=== PATIENT | female | born 1940 | race Caucasian/White ===

== ENCOUNTER 2016-03-31 10:35 | Outpatient (CLI) | payer MEDICARE | END 2016-03-31 10:36 | disposition home or self-care (01) | DX: M81.0 Age-related osteoporosis without current pathological fracture (principal) ==

== ENCOUNTER 2016-06-19 12:09 | Outpatient (CLI) | payer MEDICARE | END 2016-06-19 12:10 | disposition home or self-care (01) | DX: Z53.9 Procedure and treatment not carried out, unspecified reason (principal) ==

== ENCOUNTER 2016-07-05 14:36 | Outpatient (CLI) | payer MEDICARE | END 2016-07-05 14:37 | disposition home or self-care (01) | DX: Z12.31 Encounter for screening mammogram for malignant neoplasm of breast (principal) ==

== ENCOUNTER 2016-08-11 11:50 | Outpatient (CLI) | payer MEDICARE ==
--- NOTE | 2016-08-11 13:05 | XRAY Report ---
THREE-VIEW RIGHT WRIST: 08/11/2016 CLINICAL INDICATION: Bony growth right dorsal wrist. FINDINGS: AP, lateral, oblique views of the right wrist demonstrate mild osteoarthritis. There is n o evidence of acute fracture or dislocation. No abnormal calcification or ossification is appreciate d in the dorsal soft tissues. Minimal chondrocalcinosis is noted. IMPRESSION: OSTEOARTHRITIS, WITH CHONDROCALCINOSIS. NO ABNORMAL SOFT TISSUE CALCIFICATION OR OSSIFI CATION IS APPRECIATED DORSALLY. JOB #: [id number] EXT JOB #:[id number]
== END 2016-08-11 11:51 | disposition home or self-care (01) ==
LOC: DI 11:50
PROVIDERS: ATTEND Registered Nurse
DX: M19.031 Primary osteoarthritis, right wrist (principal); M11.231 Other chondrocalcinosis, right wrist

== ENCOUNTER 2016-08-31 13:30 | Outpatient (CLI) | payer MEDICARE ==
--- NOTE | 2016-09-01 09:23 | XRAY Report ---
LEFT HIP AND PELVIS: 08/31/2016 CLINICAL INDICATION: Left hip pain. FINDINGS: Frontal view of the hips and pelvis and frogleg lateral view of the left hip demonstrate n o evidence of fracture or dislocation. Moderate osteoarthritis is present. Surgical clips are noted in the left groin. IMPRESSION: MODERATE OSTEOARTHRITIS. JOB #: [id number] EXT JOB #:[id number]
== END 2016-08-31 13:31 | disposition home or self-care (01) ==
LOC: DI.S 13:30
PROVIDERS: ATTEND Nurse Practitioner Family
DX: M16.12 Unilateral primary osteoarthritis, left hip (principal)

== ENCOUNTER 2017-05-02 08:00 | Outpatient (CLI) | payer MEDICARE | END 2017-05-02 08:01 | disposition home or self-care (01) | LOC: LAB.R 08:00 | PROVIDERS: ATTEND Nurse Practitioner | DX: R19.7 Diarrhea, unspecified (principal); R10.30 Lower abdominal pain, unspecified; R63.4 Abnormal weight loss | CPT/HCPCS: 87493 ==

== ENCOUNTER 2017-08-29 11:38 | Outpatient (CLI) | payer MEDICARE ==
--- NOTE | 2017-08-29 15:13 | XRAY Report ---
Procedure Date: 08/29/2017 Accession Number: [id number] / [id number] Procedure: XRS - Thoracic Spine 2 View CPT Code: FULL RESULT: EXAM: Thoracic Spine 2 View DATE: 08/29/2017 12:06 PM CLINICAL HISTORY: INCREASING THORACIC BACK PX COMPARISON: 08/16/2015 TECHNIQUE: 2 views. FINDINGS: Alignment: Anterior kyphosis. Bones: Compression fractures are stable. No new fracture is present. Disks: Degenerative disc disease. Soft Tissues: Normal. The visualized lungs and cardiomediastinal silhouette are normal. IMPRESSION: Stable compression fractures and degenerative changes. No significant interval change from 08/16/2015. RADIA
== END 2017-08-29 11:39 | disposition home or self-care (01) ==
LOC: DI.S 11:38
PROVIDERS: ATTEND Registered Nurse
DX: M51.34 Other intervertebral disc degeneration, thoracic region (principal)
CPT/HCPCS: 72070

== ENCOUNTER 2017-08-29 11:39 | Outpatient (CLI) | payer MEDICARE ==
--- NOTE | 2017-08-30 10:21 | Mammography Report ---
Procedure Date: 08/29/2017 Accession Number: [id number] / [id number] Procedure: MGS - Screening Mammo Dig Bilat CPT Code: FULL RESULT: EXAM: Screening Mammo Dig Bilat DATE: 08/29/2017 12:07 PM CLINICAL HISTORY: 76-year-old with personal history of left breast cancer status post lumpectomy for screening TECHNIQUE: Bilateral CC and MLO views were obtained. COMPARISON: 07/05/2016, 09/18/2014, 09/08/2013, 09/17/2012, 09/07/2011, 08/22/2010, 07/28/2009 FINDINGS: The breasts demonstrate heterogeneously dense fibroglandular parenchyma bilaterally. Postoperative changes in the left breast are stable. Coarse and punctate, typically benign calcifications are present. No suspicious masses, clustered microcalcifications, or regions of architectural distortion are identified. IMPRESSION: Benign findings RECOMMENDATION: Routine annual screening unless otherwise clinically indicated. BIRADS CATEGORY 2: Benign findings STANDARD QUALIFYING STATEMENTS: 1. This examination was reviewed with the aid of Computer-Aided Detection (CAD). 2. A negative or benign imaging report should not delay biopsy if clinically suspicious findings are present. Consider surgical consultation if warrented. More than 5% of cancers are not identified by imaging. 3. Dense breasts may obscure an underlying neoplasm.
== END 2017-08-29 11:40 | disposition home or self-care (01) ==
LOC: DI.S 11:39
PROVIDERS: ATTEND Registered Nurse
DX: Z12.31 Encounter for screening mammogram for malignant neoplasm of breast (principal); Z85.3 Personal history of malignant neoplasm of breast
CPT/HCPCS: 77067

== ENCOUNTER 2017-11-22 11:40 | Outpatient (CLI) | payer MEDICARE ==
[2017-11-22] MEDS ORDERED: IOPAMIDOL-300 100 ML VIAL ONE (12:10)
[2017-11-22] MEDS ORDERED: IOPAMIDOL-300 50 ML VIAL ONE (12:10)
[2017-11-22 13:15] LABS: CREATININE 0.8 mg/dL (0.4-1.0)
[2017-11-22] MEDS ORDERED: IOPAMIDOL-300 100 ML VIAL IVP ONE (13:36)
[2017-11-22] MEDS ORDERED: IOPAMIDOL-300 50 ML VIAL PO ONE (13:36)
--- NOTE | 2017-11-22 14:10 | CT Report ---
Reason: ABDOMINAL MASS Procedure Date: 11/22/2017 Accession Number: [id number] / [id number] Procedure: CT - Abdomen/Pelvis W/ CPT Code: FULL RESULT: EXAM: CT ABDOMEN AND PELVIS EXAM DATE: 11/22/2017 01:38 PM. CLINICAL HISTORY: Abdominal mass. COMPARISONS: Thoracic spine without contrast 07/29/2014 1:43 PM. TECHNIQUE: Routine helical CT imaging was performed through the abdomen and pelvis. IV contrast: 100 mL of Isovue-300. Enteric contrast: Yes. Reconstructions: Coronal and sagittal. In accordance with CT protocol optimization, one or more of the following dose reduction techniques were utilized for this exam: automated exposure control, adjustment of mA and/or KV based on patient size, or use of iterative reconstructive technique. FINDINGS: Lung Bases: Partially visualized 8 mm linear nodularity is seen in the left upper lobe (image 1, series 3). Smaller 7 mm similar focus is seen in the lingular region (image 10, series 3). 6 mm subsolid density is suggested in the right lower lobe (image 2, series 3). Liver: Small 1.3 cm cyst is seen in the right hepatic lobe. No masses otherwise. Gallbladder/Bile Ducts: Unremarkable. Spleen: Normal. Pancreas: Normal. Adrenal Glands: Normal. Kidneys: The left kidney demonstrates a tiny subcentimeter low-density focus (image 34, series 3), technically too small to further characterize and indeterminant but probable tiny cyst. There is no nephrolithiasis or hydronephrosis. Peritoneal Cavity/Bowel: There is minimal predominantly sigmoid diverticulosis without evidence of diverticulitis. There is no obstruction or ileus. No free fluid or free air. The appendix is not visualized, however, no inflammatory changes are seen in the right lower quadrant region. Pelvic Organs: A small fat-containing left inguinal hernia is suggested. There are postoperative changes in the left inguinal region. Small calcification is seen in the uterus likely related to degenerated fibroid. Otherwise, the bladder and visualized pelvic organs are within normal limits. Vasculature: No aneurysms or other significant abnormality. Bones: Compression fracture deformities at T11 and T12 are similar to prior study, chronic. Other: None. IMPRESSION: 1. No acute intra-abdominal abnormality demonstrated. No intra-abdominal mass or adenopathy identified. 2. Small fat-containing left inguinal hernia and postoperative changes in the left inguinal region. 3. Partially visualized linear nodular changes in the lung bases measuring up to 8 mm, nonspecific. Correlation with standard chest CT could be considered for further evaluation. RADIA
== END 2017-11-22 11:41 | disposition home or self-care (01) ==
LOC: DI 11:40
PROVIDERS: ATTEND Nurse Practitioner Family
DX: R19.00 Intra-abdominal and pelvic swelling, mass and lump, unspecified site (principal); K40.90 Unilateral inguinal hernia, without obstruction or gangrene, not specified as recurrent; R91.1 Solitary pulmonary nodule
CPT/HCPCS: 36415; 74177; 82565; Q9967

== ENCOUNTER 2017-11-28 12:44 | Outpatient (CLI) | payer MEDICARE ==
[2017-11-28] MEDS ORDERED: IOPAMIDOL-300 100 ML VIAL ONE (12:52)
[2017-11-28] MEDS ORDERED: IOPAMIDOL-300 100 ML VIAL IVP ONE (13:39)
--- NOTE | 2017-11-28 15:48 | CT Report ---
Reason: LUNG NODULES ON ABD CT Procedure Date: 11/28/2017 Accession Number: [id number] / [id number] Procedure: CT - Chest W/ CPT Code: FULL RESULT: EXAM: CT CHEST EXAM DATE: 11/28/2017 01:12 PM. CLINICAL HISTORY: LUNG NODULES ON ABD CT. COMPARISONS: Abdomen pelvis CT [address] 5 5042. TECHNIQUE: Routine helical CT imaging was performed through the chest. IV contrast: None. Reconstructions: Coronal and sagittal. In accordance with CT protocol optimization, one or more of the following dose reduction techniques were utilized for this exam: automated exposure control, adjustment of mA and/or KV based on patient size, or use of iterative reconstructive technique. FINDINGS: Lungs/Pleura: Left upper lobe solid pulmonary nodule 9 mm, essentially stable compared to recent abdomen pelvis CT. Series 4 image 36. 3 adjacent nodules measure up to 7 mm, outside the field of view on the prior CT. Image 35. There is bibasilar, lingular, and right middle lobe atelectasis. 6 mm ground glass nodule of the right lower lobe also essentially stable given differences in technique. Image 36. Mediastinum: No adenopathy or masses. The heart and great vessels are normal. Bones: Compression fractures of T8, T11, and T12 appear similar to prior thoracic spine CT of 07/29/2014 Visualized Abdomen: 1.3 cm hepatic cyst is a stable finding. IMPRESSION: Left solid pulmonary nodules measure up to [address] at 3-6 months, then subsequent management based on most suspicious nodule. Right groundglass pulmonary nodule measures 6 mm. This may be followed concurrently with the left nodules. RADIA
== END 2017-11-28 12:45 | disposition home or self-care (01) ==
LOC: DI 12:44
PROVIDERS: ATTEND Nurse Practitioner Family
DX: J98.4 Other disorders of lung (principal); R91.8 Other nonspecific abnormal finding of lung field
CPT/HCPCS: 71260; Q9967

== ENCOUNTER 2018-03-22 11:46 | Outpatient (CLI) | payer MEDICARE ==
--- NOTE | 2018-03-22 13:30 | CT Report ---
Reason: MULTIPLE NODULES OF LUNG Procedure Date: 03/22/2018 Accession Number: [id number] / [id number] Procedure: CT - Chest W/O CPT Code: FULL RESULT: EXAM: CT CHEST EXAM DATE: 03/22/2018 11:56 AM. CLINICAL HISTORY: MULTIPLE NODULES OF LUNG. For a follow-up COMPARISONS: 11/28/[address] TECHNIQUE: Routine helical CT imaging was performed through the chest. IV contrast: None. Reconstructions: Coronal and sagittal. In accordance with CT protocol optimization, one or more of the following dose reduction techniques were utilized for this exam: automated exposure control, adjustment of mA and/or KV based on patient size, or use of iterative reconstructive technique. FINDINGS: Lungs/Pleura: Nodules measured on series 4: 1. Image 33 a 9 x 7 mm axial by 9 mm vertical slightly spiculated left upper lobe nodule, previously 6 x 9 mm axial by 7 mm vertical. Small adjacent nodules previously seen not definitely appreciated today. 2. Image 36 a 7 x 6 mm axial by 5 mm vertical groundglass nodule peripheral right lower lobe is unchanged. No bronchial thickening, consolidation, or edema. Pulmonary vasculature is normal. No pericardial or pleural effusion. No pneumothorax. Mediastinum: Normal. No adenopathy or masses. The heart and great vessels are normal. Bones: Stable T8 greater than T11 greater than T12 compression fractures. Imaged upper Abdomen: Stable hepatic cyst series 3 image 59 Other: None. IMPRESSION: 1. Minimally spiculated left upper lobe nodule has increased slightly in size since 11/28/2017, currently measuring 9 x 7 x 9 mm, previously 9 x 6 x 7 mm. Given the slight increase in size and its slightly spiculated appearance further evaluation by PET imaging is suggested. 2. Right lung groundglass 7 x 6 x 5 mm nodule is stable. 3. No significant new findings. RADIA
== END 2018-03-22 11:47 | disposition home or self-care (01) ==
LOC: DI 11:46
PROVIDERS: ATTEND Registered Nurse
DX: R91.8 Other nonspecific abnormal finding of lung field (principal)
CPT/HCPCS: 71250

== ENCOUNTER 2018-07-09 09:16 | Outpatient (CLI) | payer MEDICARE ==
--- NOTE | 2018-07-09 13:47 | CT Report ---
Reason: OTHER NONSPECIFIC ABNORMAL FINDING OF LUNG FIELD Procedure Date: 07/09/2018 Accession Number: [id number] / [id number] Procedure: CT - CHEST WO CPT Code: FULL RESULT: EXAM: CT CHEST EXAM DATE: 07/09/2018 09:29 AM. CLINICAL HISTORY: Multiple pulmonary nodules. COMPARISONS: CHEST W/O 03/22/2018 11:47 AM. TECHNIQUE: Routine helical CT imaging was performed through the chest. IV contrast: None. Reconstructions: Coronal and sagittal. In accordance with CT protocol optimization, one or more of the following dose reduction techniques were utilized for this exam: automated exposure control, adjustment of mA and/or KV based on patient size, or use of iterative reconstructive technique. FINDINGS: Lungs/Pleura: The previously followed left upper lobe nodule has increased in size and now demonstrates clear spiculations with suggestion of satellite extension towards the fissure. Extension measures 0.6 x 0.6 cm and the nodule without its spicules measures 1.1 x 0.8 cm. Groundglass nodule in the right lower lobe now measures 1.1 x 0.9 cm, previously 0.9 x 0.9 cm on image 32 which is potentially unchanged given limitations of technique. A fissure-based 4 mm nodule along the right horizontal fissure on image 33 is stable. Mediastinum: There are mild calcifications of the aortic arch and there are mild to moderate calcifications of the left coronary artery systems. There is no pericardial effusion. By size criteria, there is no mediastinal or hilar lymphadenopathy. Bones: Unremarkable. Visualized Abdomen: A hepatic hypodensity is too small to characterize. Other: None. IMPRESSION: The interval change of the 1.1 cm left upper lobe nodule is suspicious for malignancy. Redemonstration of a groundglass nodule in the right lower lobe which is either minimally enlarged or stable in the short interval. Recommendation: Surgical consultation. RADIA
== END 2018-07-09 09:17 | disposition home or self-care (01) ==
LOC: DI 09:16
PROVIDERS: ATTEND Registered Nurse
DX: R91.8 Other nonspecific abnormal finding of lung field (principal)
CPT/HCPCS: 71250

== ENCOUNTER 2019-03-11 15:23 | Outpatient (CLI) | payer MEDICARE ==
--- NOTE | 2019-03-14 10:57 | XRAY Report ---
Reason: PLEURODYNIA Procedure Date: 03/11/2019 Accession Number: [id number] / [id number] Procedure: XR - Ribs w/PA Chest LT CPT Code: Final Report FULL RESULT: EXAM: LEFT RIB RADIOGRAPHY EXAM DATE: 03/11/2019 03:33 PM. CLINICAL HISTORY: PLEURODYNIA. COMPARISON: THORACIC SPINE 2 VIEW 08/29/2017 11:59 AM CHEST W/O 07/09/2018 9:26 AM. TECHNIQUE: 1 view of the chest and 2 views of the ribs. FINDINGS: Bones: Old left fifth and sixth rib fracture Lungs: Lung nodules seen on CT not well seen. Left basilar atelectasis Tenting of the left hemidiaphragm. No pneumothorax. No pleural effusions. Mediastinum: Heart and mediastinal contours are unremarkable. Other: Calcific tendinitis right shoulder IMPRESSION: 1. No acute fracture 2. Left basilar atelectasis RADIA
== END 2019-03-11 15:24 | disposition home or self-care (01) ==
LOC: DI 15:23
PROVIDERS: ATTEND Nurse Practitioner Family
DX: J98.11 Atelectasis (principal)

== ENCOUNTER 2019-05-01 12:45 | Outpatient (CLI) | payer MEDICARE ==
--- NOTE | 2019-05-02 09:24 | XRAY Report ---
Reason: PAIN IN RT SHLDR Procedure Date: 05/01/2019 Accession Number: [id number] / [id number] Procedure: XR - Ribs w/PA Chest LT CPT Code: Final Report FULL RESULT: EXAM: LEFT RIB RADIOGRAPHY EXAM DATE: 05/01/2019 12:45 PM. CLINICAL HISTORY: PAIN IN RT SHLDR. COMPARISON: RIBS W/PA CHEST LT 03/11/2019 3:27 PM CHEST W/O 07/09/2018 9:26 AM. TECHNIQUE: 1 view of the chest and 2 views of the ribs. FINDINGS: Bones: Proximal right humeral deformity with smooth contours. Bones appear osteopenic. Multiple chronic thoracic spine compression fractures. Lateral right seventh and ninth rib fractures. Lungs: Lingular lung nodule projects over the anterior left fifth rib. Stable left hemidiaphragm tenting. Trachea appears to bow to patient's left. Mediastinum: Heart and mediastinal contours are unremarkable. Other: None. IMPRESSION: 1. Diffuse osteopenia limits evaluation. 2. Lateral right seventh and ninth rib fractures versus superimposition artifact on oblique film. 3. Multiple known chronic thoracic spine compression fractures. 4. Proximal right humeral deformity with smooth contours may be related to remote fracture or erosive process. Consider right shoulder MRI or CT. 5. Consider chest CT to reassess previously demonstrated lung nodules, thoracic spine compression fractures, questionable right rib fractures and leftward tracheal deviation. RADIA
== END 2019-05-01 23:59 | disposition home or self-care (01) ==
LOC: DI 12:45
PROVIDERS: ATTEND Registered Nurse
DX: R07.89 Other chest pain (principal); M21.921 Unspecified acquired deformity of right upper arm; R91.8 Other nonspecific abnormal finding of lung field

== ENCOUNTER 2019-08-28 12:58 | Outpatient (CLI) | payer MEDICARE ==
--- NOTE | 2019-08-28 16:26 | MRI Report ---
PROCEDURE: Shoulder RT W/O INDICATIONS: RIGHT SHOULDER PAIN TECHNIQUE: Noncontrast oblique coronal T2 fast spin echo with fat saturation, oblique sagittal T1 spin echo and T2 fast spin echo with fat saturation, axial T1 spin echo and T2 fast spin echo with fat saturation t hrough the shoulder. COMPARISON: None. FINDINGS: Image quality: Motion degraded examination. Rotator cuff: Large full-thickness tear of the supraspinatus and infraspinatus tendons is present. The teres minor tendon appears intact. Subscapularis tendinopathy and thickening which not well visualized due to mot ion artifact. There is probable interstitial tearing. Severe atrophy of the supraspinatus and infrasp inatus muscles. Bones and bursae: Large Hill-Sachs fracture deformity. Moderate acromioclavicular joint degeneration. Glenohumeral joint degeneration also noted. The acromion demonstrates conventional anatomy, without an os acromiale. Small joint effusion Capsule and soft tissues: Labrum: Labrum not well seen due to motion artifact. There is blunting of the posterior labrum and il l-defined amorphous intrasubstance signal change along the anteroinferior segment. Technically, no fl uid signal intensity is seen within the substance. Long head biceps tendon grossly intact although some intrasubstance signal changes raise the possibil ity of tendinopathy Near complete obliteration of the subcoracoid fat. The coracohumeral ligament is not well seen and ma y be ruptured. IMPRESSION: Large full-thickness tear of the supraspinatus and infraspinatus tendons. Subscapularis tendinopathy and interstitial tearing. Atrophy of the supraspinatus and infraspinatus muscles Chronic large Hill-Sachs fracture deformity, with suspected chronic tear of the anteroinferior labrum as well as the posterior segment. Long head biceps tendinopathy Degenerative joint disease Small joint effusion Motion degraded examination Reviewed by: Chris Gallagher MD on 08/28/2019 4:24 PM PDT Approved by: Chris Gallagher MD on 08/28/2019 4:24 PM PDT Station ID: [id number]
== END 2019-08-28 12:59 | disposition home or self-care (01) ==
LOC: DI 12:58
PROVIDERS: ATTEND Registered Nurse
DX: M75.101 Unspecified rotator cuff tear or rupture of right shoulder, not specified as traumatic (principal); M19.011 Primary osteoarthritis, right shoulder; M25.411 Effusion, right shoulder; S42.291D Other displaced fracture of upper end of right humerus, subsequent encounter for fracture with routine healing

== ENCOUNTER 2021-06-10 09:23 | Outpatient (CLI) | payer MEDICARE ==
[2021-06-10 14:58] LABS: BASOPHILS # (AUTO) 0.1 10^3/uL (0.0-0.1); BASOPHILS % (AUTO) 1.4 %; EOSINOPHILS # (AUTO) 0.2 10^3/uL (0.0-0.7); EOSINOPHILS % (AUTO) 4.1 %; HCT - HEMATOCRIT 32.8 % (37.0-47.0); HGB - HEMOGLOBIN 10.8 g/dL (12.0-16.0); LYMPHOCYTES # (AUTO) 1.1 10^3/uL (1.5-3.5); LYMPHOCYTES % (AUTO) 23.3 %; MEAN CORPUSCULAR HEMOGLOBIN 33.9 pg (27.0-31.0); MEAN CORPUSCULAR HGB CONC 32.9 g/dL (32.0-36.0); MEAN CORPUSCULAR VOLUME 102.8 fL (81.0-99.0); MEAN PLATELET VOLUME 9.3 fL (7.9-10.8); MONOCYTES # (AUTO) 0.7 10^3/uL (0.0-1.0); MONOCYTES % (AUTO) 14.1 %; NEUTROPHILS # (AUTO) 2.8 10^3/uL (1.5-6.6); NEUTROPHILS % (AUTO) 56.9 %; PLT - PLATELET COUNT 330 10^3/uL (130-450); RED BLOOD COUNT 3.19 10^6/uL (4.20-5.40); RED CELL DISTRIBUTION WIDTH 11.9 % (12.0-15.0); WHITE BLOOD COUNT 4.9 x10^3/uL (4.8-10.8)
[2021-06-10 15:21] LABS: ALBUMIN 4.5 g/dL (3.2-5.5); ALBUMIN/GLOBULIN RATIO 1.7 (1.0-2.2); ALKALINE PHOSPHATASE 33 IU/L (42-121); ALT ALANINE AMINOTRANSFERASE 20 IU/L (10-60); AST ASPARTATE AMINOTRANSFERASE 29 IU/L (10-42); BILIRUBIN,TOTAL 0.9 mg/dL (0.2-1.0); BUN - BLOOD UREA NITROGEN 25 mg/dL (6-20); CALCIUM 9.4 mg/dL (8.5-10.3); CARBON DIOXIDE - CO2 26 mmol/L (21-32); CHLORIDE 96 mmol/L (101-111); CREATININE 1.3 mg/dL (0.4-1.0); GFR - MDRD 40 (>89); GLUCOSE 95 mg/dL (70-100); POTASSIUM 3.9 mmol/L (3.5-5.0); SODIUM 135 mmol/L (135-145); TOTAL PROTEIN 7.1 g/dL (6.7-8.2)
[2021-06-10 15:26] LABS: CRP - C-REACTIVE PROTEIN < 1.0 mg/dL (0-1.0)
== END 2021-06-10 09:24 | disposition home or self-care (01) ==
LOC: LAB.S 09:23
PROVIDERS: ATTEND Internal Medicine Rheumatology
DX: M05.9 Rheumatoid arthritis with rheumatoid factor, unspecified (principal); Z79.899 Other long term (current) drug therapy
CPT/HCPCS: 36415; 80053; 85025; 85651; 86140

== ENCOUNTER 2021-08-10 15:01 | Outpatient (CLI) | payer MEDICARE ==
--- NOTE | 2021-08-10 15:28 | CT Report ---
PROCEDURE: HEAD WO INDICATIONS: CLOSED INJURY OF HEAD TECHNIQUE: Noncontrast 4.5 mm thick angled axial sections acquired from the foramen magnum to the vertex. For r adiation dose reduction, the following was used: automated exposure control, adjustment of mA and/or kV according to patient size. COMPARISON: None. FINDINGS: Image quality: There is streak artifact seen through the skull base. CSF spaces: Basal cisterns are patent. No extra-axial fluid collections. Ventricles are normal in size and shape. Brain: No midline shift. No intracranial masses or hemorrhage. Swartz-white matter interface is norm al. Skull and face: Calvarium and visualized facial bones are intact, without suspicious lesions. Sinuses: Visualized sinuses and mastoids are clear. IMPRESSION: No intracranial hemorrhage is seen. No significant intracranial abnormality is seen. Reviewed by: Ronnie Mays MD on 08/10/2021 2:27 PM MONICA Approved by: Ronnie Mays MD on 08/10/2021 2:27 PM AKCATHY Station ID: [id number]
== END 2021-08-10 15:02 | disposition home or self-care (01) ==
LOC: DI 15:01
PROVIDERS: ATTEND Registered Nurse
DX: S09.90XA Unspecified injury of head, initial encounter (principal)

== ENCOUNTER 2021-10-03 08:58 | Outpatient (CLI) | payer MEDICARE ==
[2021-10-03 09:09] LABS: BASOPHILS # (AUTO) 0.1 10^3/uL (0.0-0.1); BASOPHILS % (AUTO) 1.2 %; EOSINOPHILS # (AUTO) 0.2 10^3/uL (0.0-0.7); EOSINOPHILS % (AUTO) 3.8 %; HCT - HEMATOCRIT 30.6 % (37.0-47.0); HGB - HEMOGLOBIN 10.5 g/dL (12.0-16.0); LYMPHOCYTES # (AUTO) 1.3 10^3/uL (1.5-3.5); LYMPHOCYTES % (AUTO) 23.1 %; MEAN CORPUSCULAR HEMOGLOBIN 34.9 pg (27.0-31.0); MEAN CORPUSCULAR HGB CONC 34.3 g/dL (32.0-36.0); MEAN CORPUSCULAR VOLUME 101.7 fL (81.0-99.0); MEAN PLATELET VOLUME 8.7 fL (7.9-10.8); MONOCYTES % (AUTO) 17.8 %; NEUTROPHILS # (AUTO) 3.1 10^3/uL (1.5-6.6); NEUTROPHILS % (AUTO) 53.8 %; PLT - PLATELET COUNT 291 10^3/uL (130-450); RED BLOOD COUNT 3.01 10^6/uL (4.20-5.40); RED CELL DISTRIBUTION WIDTH 12.3 % (12.0-15.0); WHITE BLOOD COUNT 5.8 x10^3/uL (4.8-10.8)
[2021-10-03 09:28] LABS: ALBUMIN 4.6 g/dL (3.2-5.5); ALBUMIN/GLOBULIN RATIO 1.9 (1.0-2.2); ALKALINE PHOSPHATASE 36 IU/L (42-121); ALT ALANINE AMINOTRANSFERASE 17 IU/L (10-60); AST ASPARTATE AMINOTRANSFERASE 28 IU/L (10-42); BILIRUBIN,TOTAL 0.9 mg/dL (0.2-1.0); BUN - BLOOD UREA NITROGEN 29 mg/dL (6-20); CALCIUM 9.6 mg/dL (8.5-10.3); CARBON DIOXIDE - CO2 26 mmol/L (21-32); CHLORIDE 96 mmol/L (101-111); CREATININE 1.2 mg/dL (0.4-1.0); GFR - MDRD 43 (>89); GLUCOSE 98 mg/dL (70-100); POTASSIUM 3.2 mmol/L (3.5-5.0); SODIUM 133 mmol/L (135-145)
[2021-10-03 10:01] LABS: CRP - C-REACTIVE PROTEIN < 1.0 mg/dL (0-1.0)
== END 2021-10-03 08:59 | disposition home or self-care (01) ==
LOC: LAB 08:58
PROVIDERS: ATTEND Internal Medicine Rheumatology
DX: M05.9 Rheumatoid arthritis with rheumatoid factor, unspecified (principal); Z79.899 Other long term (current) drug therapy; M81.8 Other osteoporosis without current pathological fracture
CPT/HCPCS: 36415; 80053; 82306; 85025; 86140

== ENCOUNTER 2021-12-01 12:25 | Outpatient (CLI) | payer MEDICARE ==
--- NOTE | 2021-12-01 17:00 | XRAY Report ---
PROCEDURE: Foot 3 View RT INDICATIONS: PAINFUL RIGHT FOOT TECHNIQUE: 3 views of the foot were acquired. COMPARISON: None FINDINGS: Bones: No acute fractures or dislocations. No suspicious bony lesions. Postsurgical changes of prio r arthroplasty of the first metatarsal head. No evidence to suggest hardware loosening or failure. Al ignment appears anatomic. Small plantar calcaneal enthesophyte. Soft tissues: No tibiotalar joint effusion. Achilles tendon appears normal. Soft tissue calcificat ion projects over the expected location of the plantar fascia. IMPRESSION: Right foot without acute fracture or dislocation. Postsurgical changes of arthrodesis involving the head of the first metatarsal. No evidence of hardwa re complication. Plantar calcaneal enthesopathy with findings compatible with chronic plantar fasciitis. Reviewed by: Ton Rose MD on 12/01/2021 4:59 PM PDT Approved by: Ton Rose MD on 12/01/2021 4:59 PM PDT Station ID: [id number]
== END 2021-12-01 12:26 | disposition home or self-care (01) ==
LOC: DI.S 12:25
PROVIDERS: ATTEND Podiatrist
DX: M77.31 Calcaneal spur, right foot (principal); M79.671 Pain in right foot

== ENCOUNTER 2022-06-06 14:04 | Outpatient (CLI) | payer MEDICARE ==
[2022-06-06 19:48] LABS: PT - PROTHROMBIN TIME 10.9 secs (9.9-12.6)
[2022-06-06 19:51] LABS: BASOPHILS # (AUTO) 0.1 10^3/uL (0.0-0.1); BASOPHILS % (AUTO) 1.1 %; EOSINOPHILS # (AUTO) 0.1 10^3/uL (0.0-0.7); EOSINOPHILS % (AUTO) 1.3 %; HCT - HEMATOCRIT 33.4 % (37.0-47.0); HGB - HEMOGLOBIN 10.5 g/dL (12.0-16.0); LYMPHOCYTES # (AUTO) 0.8 10^3/uL (1.5-3.5); LYMPHOCYTES % (AUTO) 14.8 %; MEAN CORPUSCULAR HEMOGLOBIN 34.3 pg (27.0-31.0); MEAN CORPUSCULAR HGB CONC 31.4 g/dL (32.0-36.0); MEAN CORPUSCULAR VOLUME 109.2 fL (81.0-99.0); MEAN PLATELET VOLUME 9.9 fL (7.9-10.8); MONOCYTES # (AUTO) 0.8 10^3/uL (0.0-1.0); MONOCYTES % (AUTO) 14.3 %; NEUTROPHILS # (AUTO) 3.8 10^3/uL (1.5-6.6); NEUTROPHILS % (AUTO) 68.3 %; PLT - PLATELET COUNT 292 10^3/uL (130-450); RED BLOOD COUNT 3.06 10^6/uL (4.20-5.40); RED CELL DISTRIBUTION WIDTH 11.7 % (12.0-15.0); WHITE BLOOD COUNT 5.6 x10^3/uL (4.8-10.8)
[2022-06-06 19:55] LABS: ALBUMIN 4.4 g/dL (3.2-5.5); ALBUMIN/GLOBULIN RATIO 1.9 (1.0-2.2); ALKALINE PHOSPHATASE 37 IU/L (42-121); ALT ALANINE AMINOTRANSFERASE 18 IU/L (10-60); AST ASPARTATE AMINOTRANSFERASE 28 IU/L (10-42); BILIRUBIN,TOTAL 0.6 mg/dL (0.2-1.0); BUN - BLOOD UREA NITROGEN 22 mg/dL (6-20); CALCIUM 9.4 mg/dL (8.5-10.3); CARBON DIOXIDE - CO2 26 mmol/L (21-32); CHLORIDE 104 mmol/L (101-111); CREATININE 1.2 mg/dL (0.4-1.0); CRP - C-REACTIVE PROTEIN < 1.0 mg/dL (0-1.0); GFR - MDRD 43 (>89); GLUCOSE 91 mg/dL (70-100); POTASSIUM 4.2 mmol/L (3.5-5.0); SODIUM 140 mmol/L (135-145); TOTAL PROTEIN 6.7 g/dL (6.7-8.2)
== END 2022-06-06 14:05 | disposition home or self-care (01) ==
LOC: LAB.S 14:04
PROVIDERS: ATTEND Internal Medicine Rheumatology
DX: Z01.812 Encounter for preprocedural laboratory examination (principal); M05.9 Rheumatoid arthritis with rheumatoid factor, unspecified; R19.00 Intra-abdominal and pelvic swelling, mass and lump, unspecified site; Z79.899 Other long term (current) drug therapy
CPT/HCPCS: 36415; 80053; 85025; 85610; 86140

== ENCOUNTER 2022-07-05 14:43 | Outpatient (CLI) | payer MEDICARE ==
[2022-07-05 15:05] LABS: CALCIUM 9.7 mg/dL (8.5-10.3); CREATININE 1.4 mg/dL (0.4-1.0); POTASSIUM 4.1 mmol/L (3.5-5.0)
--- NOTE | 2022-07-05 16:27 | CT Report ---
PROCEDURE: CHEST WO INDICATIONS: FIBROUS TUMOR TECHNIQUE: Noncontrast 1mm axial images were acquired from the pulmonary apices to the posterior costophrenic an gles. Axial 5 mm soft tissue kernel reconstructions were performed as well as 8 mm axial MIP and cor onal and sagittal 5 mm reformations. For radiation dose reduction, the following was used: automate d exposure control, adjustment of mA and/or kV according to patient size. COMPARISON: CT 07/19/2018 FINDINGS: Image quality: Excellent. Lungs and pleura: No consolidation. No pleural effusions. No pneumothorax. No suspicious pulmonary n odules which require follow up. Prior right lower and upper lobe wedge resections, without evidence o f local recurrence. Mediastinum: Heart size is normal. No pericardial effusions. No mediastinal adenopathy by size criter ia. No large vessel abnormality. Chest wall and lower neck: Thyroid is diminutive. No axillary or supraclavicular adenopathy by size. Bones: No aggressive osseous abnormality. Healing left posterior rib fractures. Upper Abdomen: Subcentimeter hypoattenuating lesion in segment 8, too small to characterize by CT IMPRESSION: Prior right lung wedge resections, without evidence of local recurrence. Diminutive thyroid, which may indicate underlying thyroiditis. Correlate with thyroid panel. Reviewed by: Eder Pearson on 07/05/2022 4:25 PM PDT Approved by: Eder Pearson on 07/05/2022 4:25 PM PDT Station ID: [id number]
== END 2022-07-05 14:44 | disposition home or self-care (01) ==
LOC: DI 14:43
PROVIDERS: ATTEND Surgery
DX: Z01.810 Encounter for preprocedural cardiovascular examination (principal); I25.119 Atherosclerotic heart disease of native coronary artery with unspecified angina pectoris; D49.2 Neoplasm of unspecified behavior of bone, soft tissue, and skin; Z90.2 Acquired absence of lung [part of]
CPT/HCPCS: 36415; 80048; 83880

== ENCOUNTER 2023-10-16 15:08 | Outpatient (CLI) | payer MEDICARE | END 2023-10-16 15:09 | disposition home or self-care (01) | LOC: DI 15:08 | PROVIDERS: ATTEND Registered Nurse | DX: R01.1 Cardiac murmur, unspecified (principal); I35.0 Nonrheumatic aortic (valve) stenosis | CPT/HCPCS: 93307 ==